=== PATIENT | male | born 1940 | race Caucasian/White ===

== ENCOUNTER 2022-05-15 14:25 | Outpatient (CLI) | payer MEDICARE, SELFPAY ==
--- NOTE | ~2022-05-15 | XR_ITS ---
XR abdomen/kub 1V 05/15/2022 14:52 INDICATION: Abnormal PSA levels TECHNIQUE: KUB COMPARISON: None FINDINGS: Bowel gas pattern is normal. There is moderate lumbar spondylosis with levoscoliosis. There is osteoarthritis of the hips. No sclerotic lesions are identified. Lung bases unremarkable. There a re cholecystectomy clips. There is no evidence of free air, mass, organomegaly, ascites or obstructio n. No abnormal calculi are seen. The bones appear intact. IMPRESSION: 1: No acute abdominal abnormality identified. Reviewed, dictated and finalized at location A.
== END 2022-05-15 14:26 | disposition home or self-care (01) ==
LOC: ANHBWCIMG 14:36
PROVIDERS: PCP Internal Medicine; Visit Provider Urology
DX: R97.20 Elevated prostate specific antigen [PSA] (principal)
CPT/HCPCS: 74018

== ENCOUNTER 2023-02-01 13:43 | Outpatient (CLI) | payer MEDICARE, SELFPAY ==
--- NOTE | ~2023-02-01 | XR_ITS ---
EXAMINATION: XR abdomen/kub 1V INDICATION: Possible kidney stones TECHNIQUE: Supine views of the abdomen were obtained on 2 radiographs. COMPARISON: 05/15/2022 FINDINGS: No urolithiasis is identified. The bowel gas pattern is normal. There is mild osteoarthriti s of the hips. Moderate to severe lumbar spondylosis is noted. Surgical clips in the right upper quad rant are likely from prior cholecystectomy. IMPRESSION: 1. No urolithiasis identified. Reviewed, dictated and finalized at location A.
== END 2023-02-01 13:44 | disposition home or self-care (01) ==
PROVIDERS: PCP Internal Medicine; Visit Provider Urology
DX: Z87.442 Personal history of urinary calculi (principal)
CPT/HCPCS: 74018